=== PATIENT | female | born 1985 | race Two or more races ===

== ENCOUNTER → 2023-10-24 07:39 | Outpatient (REF) | payer BC, SELFPAY | LOC: MRI 3T 07:39 | PROVIDERS: ATTENDING PHYSICIAN Surgery; FAMILY PHYSICIAN Family Medicine | DX: R92.8 Other abnormal and inconclusive findings on diagnostic imaging of breast (principal) | CPT/HCPCS: 77049; A9585 ==

== ENCOUNTER → 2024-10-10 13:24 | Outpatient (REF) | payer BC, SELFPAY | LOC: RAD 13:24 | PROVIDERS: ATTENDING PHYSICIAN Nurse Practitioner Primary Care | DX: M79.622 Pain in left upper arm (principal) | CPT/HCPCS: 73060 ==